=== PATIENT | female | born 1980 | race Caucasian/White ===

== ENCOUNTER → 2019-02-09 | Outpatient (CLI) | payer OTHER, SELFPAY ==
[2019-02-09 14:06] LABS: Color, Urine Straw (Yellow); Glucose, Dipstick Normal (Normal); Ketone-Dipstick Negative (Negative); Leukocyte Esterase-Dipstick Negative /ul (Negative); Nitrite-Dipstick Negative (Negative); Occult Blood-Urine Negative /ul (Negative); Protein-Dipstick Negative (Negative); Urine Bilirubin Dipstick Negative (Negative); Urine Clarity Clear (Clear); Urine Urobilinogen Normal (Normal); Urine pH 6.5 (5.0 - 8.0)
[2019-02-09 15:37] LABS: Chlamydia Trachomatis by PCR Negative (Negative); Neisserai gonorrhoeae by PCR Negative (Negative); Probe Check PASS; Sample Adequacy Control PASS; Specimen Processing Control PASS
[2019-02-09 16:12] LABS: Absolute Lymphocyte Count 1.55 X10^3/ul (0.83-4.51); Absolute Neutrophil Count 5.9 X10^3/uL (2.0-7.7); Basophil# 0.01 X10^3/uL; Basophil% 0.1 % (0-1); Eosinophil# 0.11 X10^3/uL; Eosinophils% 1.4 % (0-5); Hematocrit 33.7 % (37-47); Hemoglobin 10.4 g/dl (12.0-15.0); Lymphocyte # 1.55 X10^3/ul (4.0); Lymphocyte % 19.2 % (19-41); Mean Corp Hgb Conc 30.9 g/gl (32-36); Mean Corpuscular Hgb 25.5 pg (27.0-32.0); Mean Corpuscular Volume 82.6 fL (81-99); Mean Platelet Vol. 10.2 fl (6.2-12.0); Monocyte# 0.45 X10^3/uL; Monocyte% 5.6 % (0-10); Neutrophil # 5.92 X10^3/uL (2.7-7.7); Neutrophil % 73.5 % (47-70); Platelet Count 298 K/mm3 (150-450); RBC Distribution Width SD 47.7 fl (35.1-43.9); Red Blood Count 4.08 M/mm3 (4.2-5.4); White Blood Count 8.1 K/mm3 (4.4-11.0)
[2019-02-09 16:13] LABS: POSITIVE COUNT NO; POSITIVE DIFFERENTIAL NO; POSITIVE MORPHOLOGY NO
[2019-02-09 16:28] LABS: Thyroid Stim Hormone (TSH) 1.09 uIU/mL (0.358-3.74)
[2019-02-09 17:10] LABS: HIV - WCH Non-Reactive (Nonreactive); Rubella IgG 119.2 IU/mL
[2019-02-10 04:56] LABS: Prenatal RPR NONREACTIVE (NONREACTIVE)
[2019-02-11 15:28] LABS: HEPATITIS B SURFACE AG Negative (Negative); Hep C Antibodies <0.1 s/co ratio (0.0-0.9)
[2019-02-13 10:12] LABS: HPV Reflexed? NOT INDICATED
== END | disposition home or self-care (01) ==
PROVIDERS: Visit Provider Obstetrics & Gynecology
DX: Z12.4 Encounter for screening for malignant neoplasm of cervix (principal); Z11.3 Encounter for screening for infections with a predominantly sexual mode of transmission; Z34.81 Encounter for supervision of other normal pregnancy, first trimester
CPT/HCPCS: 36415; 81002; 84443; 85025; 86703; 86762; 86803; 87340; 87491; 87591; 87624; 88175; G0145

== ENCOUNTER 2019-08-16 07:50 | Inpatient (IN) | payer SELFPAY, OTHER ==
[2017-09-26 12:07] VITALS: BMI 24.5
[2019-08-16] VITALS (17 sets, daily range): BP systolic 99–134; BP diastolic 53–85; PULSE 72–97; RESP 16–18; TEMP 36.5–37.3; O2SAT 95–99; BMI 31.8
[2019-08-16] MEDS: Ondansetron 4 MG/2 ML Vial IV (07:56)
[2019-08-16 08:02] LABS: Absolute Lymphocyte Count 1.64 X10^3/uL (0.83-4.51); Absolute Neutrophil Count 7.1 X10^3/uL (2.0-7.7); Basophil# 0.02 X10^3/uL; Basophil% 0.2 % (0-1); Eosinophil# 0.07 X10^3/uL; Eosinophils% 0.8 % (0-5); Hematocrit 38.2 % (37-47); Hemoglobin 12.7 g/dL (12.0-15.0); Lymphocyte # 1.64 X10^3/ul (4.0); Lymphocyte % 17.6 % (19-41); Mean Corp Hgb Conc 33.2 g/dL (32-36); Mean Corpuscular Hgb 30.8 pg (27.0-32.0); Mean Corpuscular Volume 92.5 fL (81-99); Mean Platelet Vol. 10.4 fl (6.2-12.0); Monocyte# 0.44 X10^3/uL; Monocyte% 4.7 % (0-10); NRBC Flagged by Analyzer 0 % (0-5); Neutrophil # 7.11 X10^3/uL (2.7-7.7); Neutrophil % 76.3 % (47-70); Platelet Count 185 K/mm3 (150-450); RBC Distribution Width CV 14.5 % (11.6-14.6); RBC Distribution Width SD 49.1 fl (35.1-43.9); Red Blood Count 4.13 M/mm3 (4.2-5.4); White Blood Count 9.3 K/mm3 (4.4-11.0)
[2019-08-16] MEDS: Lactated Ringers 1,000 ML 150 ML IV (08:45)
[2019-08-16] MEDS: Lactated Ringers 1,000 ML 999 ML IV (10:57)
[2019-08-16] MEDS: Cefazolin 2 GM in 0.9% Normal Saline 100 ML IV (11:35)
[2019-08-16] MEDS: Sodium Citrate/Citric Acid 30 ML UDC PO (11:35)
--- NOTE | 2019-08-16 12:14 | HP.PCM_ITS ---
History and Physical Date of Admission: 08/16/19 ACOG ANTEPARTUM RECORD - HISTORY AND PHYSICAL (08/16/2019) Name: CHIOMA JAIME History of This : This is a 38-year-old patient who presents to labor and delivery in early labor. care has been remarkable for 5 prior C- sections. Patient was scheduled for repeat next Wednesday at 39 weeks gestation. On the monitor the patient was having occasional contractions but they are also noted to be occasionally late appearing decelerations. Given this it was decided to proceed with section today. OB Physician: MINAL [place]'s Physician: NANCY Weiner................................................................... : 1980 Age: 38 Address: [address] [place] [address] Phone: (h) [phone] ([phone] Insurance Carrier: [facility] [phone] Emergency Contact: KRISTIE KEVIN [phone] ...................................................................... Final ANDERSON: 08/27/19 By Ultrasound: 11 weeks 0 days PARITY: (G-Total Pregnancies P-Fullterm,Premature,Induced AB,Spont AB, Ectopics, Multiple,Living) ANDERSON CONFIRMATION: By LMP: 11/21/18 Initial Exam: 08/27/19 By First Ultrasound Exam: 08/27/19 Final ANDERSON: 10/27/19 BLOOD TYPE: AFP: 1 HR P GBS: Group B Beta Streptococcus is not isolated. Original Ordering Provider: Josefina Narayan Rublla titer (>10 immune)--Sep 06 2012: 39 Hepatatis B layla AG-- CULTURES:-- OB PROBLEM LIST: 5 prior C-sections; plan repeat with tubal Brother Dx'd Leukemia age 3 FOB's Sister's baby born w/Heart Defect, 18mo. old Call Sylvain if needs for earlier labor Declines MSAFP, CF testing, consent signed as such Refuses 3 hr GTT. Check BSs and watch carbs Thrid trimester bleeding at 36 weeks; start 2x/week NST Varicella Zoster IgG Neg. Chicken Pox Hx ALLERGIES: NKDA MEDICATIONS: rsgetszwan-wqrmvaxlucanb-iubzaoif 50 mg-325 mg-40 mg tablet 1 to 2 po q 4 hr prn GOMES Calcium 500 500 mg calcium (1,250 mg) tablet One pill by mouth once a day ferrous sulfate 325 mg (65 mg iron) tablet 1 po bid Vitamin i po daily Unisom (doxylamine) 25 mg tablet 1/2 tab prn SOCIAL HISTORY: Smoking - Never Alcohol Use - None Diet - no special diet Lifestyle - moderate stress lifestyle and Exercise - regular Job Description - Homemaker Illicit Drug Use - None Sexual Activity - Spouse-Sig Other Name - Josefina Jaime Spouse-Sig Other Occupation - [employer] Spouse-Sig Other Phone No - [phone] Children Name(s) - Rush Antoine (Dr. Ac), El (FREDY),Mary (FREDY), Dequan '16 PRIOR DELIVERY HISTORY DEL DATE GEST LAB WT LB WT OZ TYPE ANES LABOR TX 16 Sep 06 39 0 7 8 C-Sec Spinal No Apr 10 39 0 7 15 C-Sec Epidural No Nov 05 40 12 8 11 C-Sec Epidural No March 13 39 0 7 7 C-Sec Spinal No ANTEPARTUM FLOW CHART VISIT GE RTC FU F F VA U U DATE WK MD WKS HT PN HR M SS BP ED WT VA GL D EF ST __ ____ ___ __ __ ___ __ __ __ ___ __ __ __ ___ __ 15 Oct 38 JMW 3 38 + + 130/68 sl 193 tr - 10 Oct 37 + + 116/72 0 191 - - 07 Oct 37 KW 1 36 ? + + 116/70 191 - - ft 50 -3 03 Oct 36 JMW 1 36 + + 116/74 0 190 - - 30 Jul 36 JMW 1 36 + + 120/82 sl 192 - - S 17 Jul 34 JMW 2 34 + + 124/68 sl 185 - - cl 50 -2 Jul 01 JMW 3 33 + + 110/70 0 192 - - 06 Jun 28 JMW 3 28 + + 110/70 tr 186 tr - May 23 JMW 5 24 + + 120/70 sl 181 tr - Apr 19 JMW 4 24 + + 116/64 0 172 - - March 15 JMW 4 15 + O 116/66 0 167 - - ANTEPARTUM NOTE(S): Aug 15 2019: see progress noteJENNY Aug 10 2019: Aug 07 2019: Aug 03 2019: BPP 06/10Jul 31 2019: see note, No bleeding now; likely false labor, Ck JENNY Jul 18 2019: Ctxs-Yvon maldonado Jun 27 2019: Yvon Renee Aug 6 2019: CBC,OGCT Today,Good FM,Feeling Well May 02 2019: Doing Well and Glucola Given Apr 04 2019: Doing Well, Comp u/s today Mar 07 2019: Declines AFP and Doing Well COMPREHENSIVE ANTEPARTUM NOTE(S): Aug 15 2019: Chioma presents for her PNV. She reports +FM and has slight swelling in her lower extremities due to her vericose veins. Preop orders/consents signed and placed to return to [facility]. Clorhexadine wash and directions given.No questions or concerns voiced. NST today as well. JT Aug 10 2019: Chioma is here at 37 w 4 d for her NST for 3rd trimester bleeding. She states that she is feeling well, and reports good FM. She states that she had ctx's q 15-20' x 90 minutes last night, but that these stopped and she was able to sleep. States ctx's/cramping she feels today is not as uncomfortable, and more irregular. Denies spotting/leaking fluid. No edema noted. Mild ctx's noted during NST. Acoustic stim x 1 during NST. NST non- reactive, read per Dr. Abarca. BPP ordered, and Chioma is aware of this and states understanding. AW Aug 07 2019: Feeling well; reports active FM; reports irregular cramping/UCs, denies VB, LOF; VE per patient request ft /50 /-3, soft/midliner; discussed more frequent rest periods, increase fluids, FM counts, warning signs, s/s Labor, when to call/come in; repeat c/section scheduled 08/21/19 RTO , 08/10/19 for NST, PNV - KVW Aug 03 2019: Chioma is here at 36 w 4 d for a NST. She states that she feels well. Denies vaginal bleeding since episode on Wednesday. Denies spotting/leaking fluid. Reports FM is about what it has been. No edema noted. Several mild ctx's noted on EEFM. Acoustic stim used x 1. NST does not meet criteria for reactivity, but is reassuring; read per Dr. Narayan. BPP done. Chioma is to return on Wednesday for another NST, and she will watch kick counts. AW Jul 31 2019: Chioma called into triage due to sharp pains and red when wiping around 0400. Pt states she has had nothing since except for cramping. Long dip is negative. Cervix check. AM Jun 27 2019: Chioma is being seen for PNV. Pt states she has been having some cxs that come and go. She also states it feels like the right side of her abdomen is the only side that gets tight through the cxs. AM Feb 09 2019: ok Feb 09 2019: Chioma presents here today for Missed Menses appointment. 38 y.o. G 6 P 5 non-smoker with regular menses and LMP of 11-21-18 lasting her average of 4-5 days. UPT is positive today in our Office. Presents at 11 weeks 2 days with an approximate ANDERSON of 08-27-19 and plans repeat at [facility]. Denies spotting/bleeding thus far in . Reports having nausea daily and tender breasts. History of normal pap screenings from 2008 to 2011 with ASCUS - HPV in 2014. Medication list up-dated and currently taking an OTC Vitamin, when she can. Educational Materials given. ASHELY Feb 09 2019: GC and chlamydia NEG. Hgb only 10.4 g/dl. Iron bid recommended. EB REVIEW OF SYSTEMS: GENERAL - Denies fever, or chills SKIN - Denies rash, new skin lesions, or change in moles EYES - Denies blurred vision, or change in visual acuity EARS - Denies ear pain, or difficulty hearing NOSE - Denies nasal congestion, discharge, or bleeding MOUTH - Denies sore throat, or difficulty swallowing NECK - Denies pain or swelling RESPIRATORY - Denies shortness of breath, cough, wheezing CARDIOVASCULAR - Denies palpitations, chest pain, orthopnea, PND, peripheral edema, syncope or claudication GASTROINTESTINAL - Denies nausea, vomiting, diarrhea, constipation, Denies abdominal pain, melena and or bright red blood GENITOURINARY - Denies dysuria, frequency of urination, urgency, or hesitancy MUSCULOSKELETAL - Denies joint or muscle pain, or back pain NEUROLOGICAL - Denies localized numbness, weakness, or tingling PSYCHIATRIC - Denies depression, anxiety, substance abuse or suicide attempts ENDOCRINE - Denies heat or cold intolerance, weight loss or gain, increasing thirst HEMATO-IMMUNOLOGIC - Denies easy bruising, bleeding, oral ulcerations or recurrent infections GENETICS SCREENING: Age 35+ years: No Thalassemia: No Neural Tube Defect: No Down Syndrome: No AKASH-SACHS: No Sickle Cell Disease: No Hemophilia: No Musc. Dystrophy: No Cystic Fibrosis: No-declines screening [place] Chorea: No Mental Retardation: No Fragile X: No Other genetic: No Other defects: No SABs/still births: No Drugs since LMP: No Comments: Brother Dx'd Leukemia, age 3, now is age 20 INFECTION HISTORY: High risk AIDS: No High risk Hepatitis: No Exposed to TB: No Exposed to Herpes: No Rash/viral illness since LMP: No History of STD: No MENSTRUAL HISTORY: *Menses Amount/Duration: 4-5 DAYSMenses Regularity: RegularFrequency: monthlyMenarche (Age Onset): 14HCG+: 09/06/2012* PAST SUMMARY: PARITY: 1. Total Pregnancies............ 6 2. Full Term Pregnancies........ 5 3. Premature.................... 0 4. Abortions - Induced.......... 0 5. Abortions - Spontaneous...... 0 6. Ectopics..................... 0 7. Multiple Births.............. 0 8. Living Children.............. 5 PAST #1: Date of :.................. 11/29/04 Gestation Weeks:................ 40 Length of labor(hours):......... 12 Sex:............................ M Weight-lbs:............... 8 Weight-oz:................ 11 Type of Delivery:............... C-Sect Type of Anesthesia:............. Epidural Place of Delivery:.............. [facility] of Labor?:.... No Comment: [facility] PAST #2: Date of :.................. 09/16/06 Gestation Weeks:................ 39 Length of labor(hours):......... 0 Sex:............................ M Weight-lbs:............... 7 Weight-oz:................ 8 Type of Delivery:............... C-Sect Type of Anesthesia:............. Spinal Place of Delivery:.............. [facility] of Labor?:.... No Comment: PAST #3: Date of :.................. 04/25/10 Gestation Weeks:................ 39 Length of labor(hours):......... 0 Sex:............................ M Weight-lbs:............... 7 Weight-oz:................ 15 Type of Delivery:............... C-Sect Type of Anesthesia:............. Epidural Place of Delivery:.............. [facility] Labor?:.... No Comment: PAST #4: Date of :.................. 03/29/13 Gestation Weeks:................ 39 Length of labor(hours):......... 0 Sex:............................ F Weight-lbs:............... 7 Weight-oz:................ 7 Type of Delivery:............... C-Sect Type of Anesthesia:............. Spinal Place of Delivery:.............. [facility] Labor?:.... No Comment: NONE PHYSICAL EXAMINATION General Appearence: 38 yo female in no acute distress Vital Signs: AF, VSS Heart: RRR without rubs or gallops Lungs: CTA x 2 Breasts: deferred Abdomen: gravid Pelvis: Cervix: Not examined Presentation: cephalic Station: Not examined Fetus: Size: AGA Movement: present Heart: present Labs for : CHIOMA JAIME since 11/30/2018 ORDER DATEIN DESCRIPTION VALUE UNITS RANGE A+ COMMENT TYPE AND SCREEN 08/16/19 Reason for Type AND Screen/Red Cells: SURGERY Type of Surgery: [facility]~[address] [place], [address]~ BLOOD TYPE GEL A POSITIVE N ANTIBODY SCREEN NEGATIVE N Reviewed by IVON CBC W/DIFF, AUTOMATED 08/16/19 NOTE Original Ordering Provider: Josefina Narayan WBC 9.3 K/mm3 4.4-11.0 RBC 4.13 M/mm3 4.2-5.4 L HGB 12.7 g/dL 12.0-15.0 HCT 38.2 % 37-47 MCV 92.5 fL 81-99 MCH 30.8 pg 27.0-32.0w MCHC 33.2 g/dL 32-36 RDW CV 14.5 % 11.6-14.6 RDW SD 49.1 fl 35.1-43.9 H PLT 185 K/mm3 150-450 MPV 10.4 fl 6.2-12.0 NEUT% 76.3 % 47-70 H LY% 17.6 % 19-41 L MONO% 4.7 % 0-10 EO% 0.8 % 0-5 BASO% 0.2 % 0-1 IM GRAN % 0.400 % 0.0-0.9 IG% - Immature Granulocytes (promyelocytes, myelocytes and metamyelocytes) > 1% indicates that a LEFT SHIFT is Present. ABSOLUTE NEUT 7.1 X10 3/uL 2.0-7.7 ABSOLUTE LYMPH 1.64 X10 3/uL 0.83-4.51 NRBC, FLAGGED 0 % 0-5 Reviewed by IVON GLUCOSE CHALLENGE 50GM 1 HOUR 06/06/19 NOTE Original Ordering Provider: JOSEFINA NARAYAN GLUCOSE CHALLENGE 50GM 1 HOUR GLUCOSE CHALLENGE 50 GMS 1 HOUR GLUCOSE 1HR 146 mg/dl 70 - 140 H Reviewed by JOSEFINA CBC + DIFF 06/06/19 NOTE Original Ordering Provider: LILA SYLVAIN CBC + DIFF CBC-COMPLETE BLOOD COUNT WBC 7.9 x 10EE3/UL 4.5 - 10.8 RBC 3.64 x 10EE6/UL 4.10 - 5.30 L HEMOGLOBIN 10.6 g/dl 12.0 - 16.0 L HEMATOCRIT 31.6 % 34.0 - 46.0 L MCV 87 fl 80 - 99 MCH 29 pg 27 - 33 MCHC 34 X10 3 32 - 36 RDW/CV 13.7 % 12.0 - 15.6 w PLATELET 254 x10EE3/UL 150 - 450 MPV 7.8 fl 6.6 - 10.5 AUTOMATED DIFFERENTIAL NEUT % 77.1 % 46.0 - 76.0 H LYMPH % 15.3 % 20.0 - 45.0 L MONOS % 5.6 % 0.0 - 10.0 EO % 1.2 % 0.0 - 7.0 BASO % 0.8 % 0.0 - 2.0 LYMPH # 1.20 x10EE3/UL 0.80 - 2.80 NEUT # 6.10 x10EE3/UL 1.50 - 7.10 MONO # 0.40 x10EE3/UL 0.20 - 1.00 EO # 0.10 x10EE3/UL 0.00 - 0.50 BASO # 0.10 x10EE3/UL 0.00 - 0.10 MANUAL DIFF N/A MORPHOLOGY N/A Reviewed by JOSEFINA HEPATITIS C ANTIBODIES 02/09/19 NOTE Original Ordering Provider: Josefina Narayan HEP C AB <0.1 s/co ratio 0.0-0.9 Negative: < 0.8 Indeterminate: 0.8 - 0.9 Positive: > 0.9 The CDC recommends that a positive HCV antibody result be followed up with a HCV Nucleic Acid Amplification test (185825). Reviewed by IVON HEPATITIS B SURFACE AG 02/09/19 NOTE Original Ordering Provider: Josefina Narayan HB SURF AG Negative Negative Performed at: [facility] [id number] [place], [place] [id number] Computer Information Systems Professor: Frankie Hickman PhD, Phone: [phone] Reviewed by IVON RPR 02/09/19 NOTE Original Ordering Provider: Josefina Narayan RPR NONREACTIVE NONREACTIVE Reviewed by IVON T AND S-NO CHARGE W/PNP 02/09/19 Reason for Type AND Screen/Red Cells: Surgery? N [facility]~[address] [place], [address]~ BLOOD TYPE GEL A POSITIVE N AB SCREEN GEL NEGATIVE N Reviewed by IVON HIV - [facility] 02/09/19 NOTE Original Ordering Provider: Josefina duran HIV - [facility] Non-Reactive Nonreactive Reviewed by JOSEFINA RUBELLA IGG 02/09/19 NOTE Original Ordering Provider: Josefina Narayan RUBELLA IGG 119.2 IU/mL Antibody results Interpretation of Immune Status < 5 IU/ml Presumed Non-immune 5 - < 10 IU/ml Equivocal > or = 10 IU/ml Presumed Immune Reviewed by JOSEFINA THYROID STIM HORMONE (TSH) 02/09/19 NOTE Original Ordering Provider: Josefina Narayan TSH 1.09 uIU/mL 0.358-3.74 Reviewed by IVON CBC W/DIFF, AUTOMATED 02/09/19 NOTE Original Ordering Provider: Josefina Narayan WBC 8.1 K/mm3 4.4-11.0 RBC 4.08 M/mm3 4.2-5.4 L HGB 10.4 g/dl 12.0-15.0 L HCT 33.7 % 37-47 L MCV 82.6 fL 81-99 MCH 25.5 pg 27.0-32.0 L MCHC 30.9w g/gl 32-36 L RDW CV 16.0 % 11.6-14.6 H RDW SD 47.7 fl 35.1-43.9 H PLT 298 K/mm3 150-450 MPV 10.2 fl 6.2-12.0 NEUT% 73.5 % 47-70 H LY% 19.2 % 19-41 MONO% 5.6 % 0-10 EO% 1.4 % 0-5 BASO% 0.1 % 0-1 w IM GRAN % 0.200 % 0.0-0.9 IG% - Immature Granulocytes (promyelocytes, myelocytes and metamyelocytes) > 1% indicates that a LEFT SHIFT is Present. ABSOLUTE NEUT 5.9 X10 3/uL 2.0-7.7 ABSOLUTE LYMPH 1.55 X10 3/ul 0.83-4.51 Reviewed by IVON URINALYSIS, ROUTINE (DIPSTICK) 02/09/19 NOTE Original Ordering Provider: Josefina Narayan COLOR Straw Yellow CLARITY Clear Clear GLUCOSE, UR Normal mg/dl Normal BILIRUBIN URINE Negative mg/dL Negative KETONE UR Negative mg/dl Negative SP.GR. DIPSTX 1.010 1.002-1.030 PH UR 6.5 5.0 - 8.0 PROT DIPSTX Negative mg/dl Negative UROBILI Normal mg/dl Normal NITRITE UR Negative Negative OCCULT BLOOD-UR Negative /ul Negative LEUK ESTERASE Negative /ul Negative Reviewed by IVON PAP IG W/REFLEX HR HPV APTIMA 02/09/19 NOTE Original Ordering Provider: Josefina Narayan DIAGN . NEGATIVE FOR INTRAEPITHELIAL LESION OR MALIGNANCY. ADEQ . Satisfactory for evaluation. Endocervical and/or squamous metaplastic cells (endocervical component) are present. PERFORM . Rafaela Almaraz Whitewasher (ASCP) TEST METHOD . This liquid based ThinPrep(R) pap test was screened with the use of an image guided system. COMM . . PAPSMR . The Pap smear is a screening test designed to aid in the detection of premalignant and malignant conditions of the uterine cervix. It is not a diagnostic procedure and should not be used as the sole means of detecting cervical cancer. Both false-positive and false-negative reports do occur. HPV RFLX . The HPV DNA reflex criteria were not met with this specimen result therefore, no HPV testing was performed. Performed at: [address] [id number] Computer Information Systems Professor: Mahnaz Ricardo MD, Phone: [phone] Reviewed by Reinier CT/LORENZO [facility] BY PCR 02/09/19 NOTE Original Ordering Provider: Josefina Narayan [facility] PCR Negative Negative NG BY PCR Negative Negative Reviewed by IVON PROVIDER SIGNATURE ( REQUIRED) Impression /Plan: 38+ week intrauterine in early labor with nonreassuring heart tones with prior section x5. Patient also desires permanent sterilization. Plan to proceed today with repeat low transverse cervical section and bilateral tubal occlusion with Filshie clips. Discussed risks, benefits, alternatives at length and will proceed. All questions were answered. Preparations in progress for delivery.
--- NOTE | 2019-08-16 13:18 | OP.PCM_ITS ---
Delivery Classification: Scheduled Final ANDERSON: 08/27/19 Final ANDERSON Source: US <20 weeks Gestational age: 38 Weeks and 3 Days supervisor sewer maintenance: Carmen Ramirez Type of Anesthesia:: Spinal - With Duramorph Implants Used: None Date of Procedure: 08/16/19 Pre-Operative Diagnosis: Prior Section, Nonreassuring Heart Ton es, Early Labor, Desires Permanent Sterilization Post-Operative Diagnosis: Prior Section, Nonreassuring Heart Tones, Early Labor, Desires Permanent Sterilization Indications: Prior section x5 Description of Procedure: Surgeon: Matthieu Dumas MD, FACOG Anesthesia: Jaz Coteat, PRODUCTION LEAD Anesthesia: Spinal with Duramorph Procedure: Repeat Low Transverse Cervical Caesarean Section And Bilateral Tubal Occlusion with Filshie Clips Findings: Viable female with Apgars of 9/9 in caput anterior presentation with clear amniotic fluid and normal three-vessel placenta and cord around the neck x1 tight. Indication: This is a 38-year-old who presents for her sixth at 38+ weeks gestation. care has otherwise been uneventful except she does desire permanent sterilization. The patient has been counseled regarding the risk and indications of this procedure including the possibility of bleeding infection and injury to surrounding structures such as bowel bladder. She also understands the permanent nature of the tubal, the failure rate of 1 to 2%, and the availability of other nonpermanent control options. All questions were answered. Procedure: Patient was taken to the operating room where after spinal anesthesia was placed, the patient was prepped and draped in usual sterile fashion and a Hinkle catheter was placed. The abdomen was entered through the patient's prior Pfannenstiel incision and peritoneum was entered bluntly. After developing a bladder flap on the lower uterine segment a low transverse incision was made on the uterus and head was easily delivered onto the operative field the nose mouth and oropharynx were bulb suctioned. Subsequently a viable female infant was born with Apgars of 9/9. The was noted to cry move all extremities vigorously on the operative field. The umbilical cord was doubly clamped and ligated and infant handed to the nursery personnel who were present for the delivery. Placenta was delivered and noted to be 3 vessels and normal. Uterus was exteriorized and remaining placental tissue was removed. The uterus was then closed in 2 layers first with running locked 0 Vicryl suture followed by a second imbricating layer with 0 Vicryl suture. 0 Vicryl suture was then used in a horizontal mattress interrupted fashion to affect final hemostasis of the uterine incision line. Normal fallopian tubes and ovaries were visualized and Filshie clip's were placed approximately 2 cm from the uterine fundus on each tube. It was necessary to oversew the tube on the left due to some bleeding that ensued after placing the Filshie clip. This was done with 0 Vicryl suture. The uterus was returned to the pelvis. Hemostasis was noted and rectus abdominis muscles were reapproximated in the midline with interrupted Number 0 Vicryl suture in a horizontal mattress fashion. Fascia was closed with running Number 1 PDS Strata fix suture. Subcutaneous tissue was irrigated with copious amounts of saline solution and then closed with running 3-0 Vicryl suture. Skin was closed with 4-0 monocryl suture in a running subcuticular fashion. Steri strips and a Mepilex dressing were placed across the incision. The patient tolerated the procedure well and was taken to the recovery room in satisfactory condition. Sponge, needle, and instrument counts were all reportedly correct. EBL was less than 500 cc. Ancef 2 gms IV was given prior to the procedure. Spicemen to Pathology: None Complications: None Amniotic Membrane Rupture Type: Artificial Amniotic Fluid Description: Clear Placenta Disposition: [facility] Drain: Hinkle to straight drain Fluids Replaced: Crystalloid Cord Entanglement: Around neck x 1, tight Cord Vessel Description: 3 Vessels Esitmated Blood Loss (ml): 500 cc Infant Gender: Female (1 minute): 9 (5 minute): 9 Antibiotic Given: Ancef 2 grams IV x1 Pt instructed on risks of surgery: Bleeding, Infection, Permanency, Failure Rate of 1 to 2%, Injury to surrounding structure(s) including bowel and bladder, Availability of other non-permanent control options Complications: None - Admit VTE Documentation VTE Present on Admission: Yes VTE Mechan Device Prophylaxis: SCD's
--- NOTE | 2019-08-16 13:28 | DCINST_ITS ---
Discharge Diet: No Restrictions Discharge Activity: May not drive while taking narcotic pain medications., May Shower, May Take a Tub Bath May resume sexual activity in: 4-6 weeks Lifting Restrictions: 20 pounds Additional Activity Instructions:: Nothing in the vagina for 4-6 weeks. You may return to work/school in 6 weeks. Call your doctor if your incision/area has: Continuous Slow Oozing, Sudden Increased Bleeding, Increased Pain/ Swelling, Increased Redness, Foul Smelling Discharge Call your doctor if you observe: Fever of 101 or Higher, Inability to urinate, Inability to have a bowel movement, Using more than one pad per hour Additional Instructions: If you experience any of the following, contact your healthcare provider. * Bleeding that soaks a pad every hour for 2 hours * Unrelieved incision or abdominal pain * Swelling, redness, discharge or bleeding from your incision or episiotomy site * Your incision begins to separate * Problems urinating (including inability to urinate or burning while urinating). * Visual changes * Severe headache * Flu-like symptoms * Pain or redness in one of both of your breasts * Pain, warmth, tenderness or swelling in your legs, especially the calf area * Frequent nausea and vomiting * Symptoms of depression or anxiety If you experience any of the following, call 911 or go to the nearest Emergency Room. * Chest pain * Problems breathing * Seizure activity * Partial or complete paralysis of a body part, slurred speech, weakness or drooping of the face, or a sudden inability to walk or hold your balance Allergies/Adverse Reactions: Allergies No Known Allergies Allergy (Verified 08/16/19 04:45) Medications to take at Discharge Docusate Sodium [Colace] 100 mg PO BID PRN PRN #60 cap 08/16/19 Ferrous Sulfate 325 mg PO DAILY 08/16/19 Oxycodone [Oxyir] 5 mg PO Q6H PRN PRN 7 Days #20 tab 08/16/19 Vits [Prenatabs FA] 1 tab PO DAILY 08/16/19 The following prescriptions were given: Docusate Sodium [Colace] 100 mg PO BID PRN PRN #60 cap PRN Reason: Constipation Prescription Printed Oxycodone [Oxyir] 5 mg PO Q6H PRN PRN 7 Days #20 tab PRN Reason: Pain Score [id number] Prescription Printed Follow-Up: Call to make an appointment with your doctor for an incision check in 1-2 weeks. You will also need a 6 week post- follow up appointment. Test results from this visit will be discussed in further detail at your follow-up appointment, if applicable. Please Follow Up With: Matthieu Dumas MD - [phone] When: Call to make an appointment for an incision check in 2 weeks. Primary Care Physician: Timothy Cardozo [Primary Care Provider] -
[2019-08-16] MEDS: Lactated Ringers 1,000 ML 100 ML IV (13:45)
[2019-08-16] MEDS: Oxytocin 30 units/NS 500 ml 30 UNITS/500 ML IV.SOLN 167 UNITS IV (14:15)
--- NOTE | 2019-08-16 15:48 | NURSING ---
precious care and pad changed
[2019-08-16] MEDS: Ketorolac 30 MG/ML Syringe IV (18:01)
[2019-08-16] MEDS: Cefazolin 1 GM/50 ML BAG IV (19:19)
[2019-08-17] VITALS (12 sets, daily range): BP systolic 94–115; BP diastolic 50–67; PULSE 80–95; RESP 14–18; TEMP 36.7–36.9; O2SAT 94–99
[2019-08-17] MEDS: Ketorolac 30 MG/ML Syringe IV ×4 (00:06→17:37)
[2019-08-17] MEDS: 0.9% Saline Lock 10 ML Syringe IV ×3 (00:06→17:37)
[2019-08-17] MEDS: Lactated Ringers 1,000 ML 100 ML IV (00:58)
[2019-08-17] MEDS: Cefazolin 1 GM/50 ML BAG IV (03:24)
[2019-08-17 05:53] LABS: Hematocrit 31.1 % (37-47); Mean Corp Hgb Conc 32.2 g/dL (32-36); Mean Corpuscular Hgb 30.2 pg (27.0-32.0); Mean Platelet Vol. 9.9 fl (6.2-12.0); Platelet Count 154 K/mm3 (150-450); RBC Distribution Width CV 14.6 % (11.6-14.6); RBC Distribution Width SD 50.3 fl (35.1-43.9); Red Blood Count 3.31 M/mm3 (4.2-5.4); White Blood Count 8.7 K/mm3 (4.4-11.0)
[2019-08-17] MEDS: Senna/Docusate Sodium 1 Tablet PO (11:44)
--- NOTE | 2019-08-17 12:05 | PCM.PN.OB ---
Subjective: This is a late entry for 08/17/2019 at 0815 Pain well controlled, tolerating diet well, not passing flatus at this time; has been up to chair x 1; well Objective: AVSS Breasts soft, nipples atraumatic Fundus firm, midline, u/2, lochia scant Mephilex abdominal dressing dry, intact, no drainage noted - Physical Exam General: Alert, Oriented x3, Cooperative HEENT: PERRLA, EOMI Oral: Moist Mucosa Neck: Supple Lungs: Clear to auscultation, Normal air movement Cardiovascular: Regular rate, Regular Rhythm Abdomen: Soft, Non Tender, Non-Distended, Hypoactive Bowel Sounds Extremities: No edema, Capillary Refill Less than 3 Seconds, No Calf Tenderness Musculoskeletal: No Tenderness to Palpation of Joints or Extremities Lymphatic: No Cervical, Supraclavicular, or Inguinal Adenopathy Neurological: Cranial nerves II-XII grossly intact, Deep Tendon Reflexes 2+/4 and Symmetrical Psych/Mental Status: Normal Affect, Appropriate, Alert and oriented to time, place, person, mood and affect Vital Signs Temp Pulse Resp BP Pulse Ox 98.0 F 85 16 101/57 L 96 08/17/19 08:15 08/17/19 10:00 08/17/19 10:00 08/17/19 08:15 08/17/19 10:00 Oxygen Delivery Method Room Air Weight: 191 lb 12.835 oz Body Mass Index (BMI) 31.8 Intake and Output for Last 24 Hours 08/15/19 08/16/19 08/17/19 23:59 23:59 23:59 Intake Total 3306.0 / 3306.0 1825.00 / 1825.00 Output Total 1050 / 1050 4600 / 4600 Balance 2256.0 / 2256.0 -2775.00 / -2775.00 Laboratory Tests Past 24 Hrs 08/17/19 05:40 WBC 8.7 RBC 3.31 L Hgb 10.0 L Hct 31.1 L MCV 94.0 MCH 30.2 MCHC 32.2 RDW Std Deviation 50.3 H RDW Coeff of Grace 14.6 Plt Count 154 MPV 9.9 Medical Necessity - Tobacco Use Smoking Status: Never smoker Assessment/Plan Assessment: 38yo G6 now P6 s/p RCS #6 POD #1 Normal involution Hypoactive BS, not passing flatus at this time Pain well controlled Plan: Encourage walking, fluids, increased fiber Notify provider if no improvement Otherwise continue routine care
[2019-08-17] MEDS: Ibuprofen 600 MG Tablet PO (23:34)
[2019-08-18 02:33] VITALS: BP 129/59; PULSE 82; RESP 18; TEMP 36.6; O2SAT 95
[2019-08-18] MEDS: oxyCODONE 5 MG Tablet PO ×2 (04:52→10:00)
[2019-08-18] MEDS: Ibuprofen 600 MG Tablet PO (08:53)
[2019-08-18] MEDS: Senna/Docusate Sodium 1 Tablet PO (08:53)
--- NOTE | 2019-08-18 09:52 | PCM.PN.OB ---
Subjective: Patient without complaints. Tolerating diet well. Still no flatus. Minimal vaginal bleeding. Wants to go home later today. - Physical Exam Vital Signs Temp Pulse Resp BP Pulse Ox 97.8 F 82 18 129/59 H 95 08/18/19 02:33 08/18/19 02:33 08/18/19 02:33 08/18/19 02:33 08/18/19 02:33 Oxygen Delivery Method Room Air Weight: 191 lb 12.835 oz Body Mass Index (BMI) 31.8 Intake and Output for Last 24 Hours 08/16/19 08/17/19 08/18/19 23:59 23:59 23:59 Intake Total 3306.0 / 3306.0 1825.00 / 1825.00 Output Total 1050 / 1050 4600 / 4600 Balance 2256.0 / 2256.0 -2775.00 / -2775.00 Wound is clean, dry, intact. Good urine output. Medical Necessity - Tobacco Use Smoking Status: Never smoker Assessment/Plan Doing well postoperative day #2 status post repeat and tubal. Will discharge home later today after positive flatus. Home-going instructions given.
[2019-08-18 10:00] VITALS: BP 107/61; PULSE 74; RESP 20; TEMP 36.7; O2SAT 97
[2019-08-18 14:15] VITALS: BP 118/64; PULSE 80; TEMP 36.6; O2SAT 99
== END 2019-08-18 15:40 | disposition home or self-care (01) | DRG 785 ==
LOC: WPOUT 07:59 → WP 07:59
PROVIDERS: Admitting Provider Obstetrics & Gynecology; Family Provider Family Medicine; PCP Family Medicine; Referring Provider Obstetrics & Gynecology; Visit Provider Obstetrics & Gynecology
PROC: 10D00Z1 Extraction of Products of Conception, Low, Open Approach (ICD-10-PCS; CPT 59514; principal; 2019-08-16 12:00)
DX: O76 Abnormality in fetal heart rate and rhythm complicating labor and delivery (principal); O99.02 Anemia complicating childbirth; D64.9 Anemia, unspecified; Z3A.38 38 weeks gestation of pregnancy; Z37.0 Single live birth
CPT/HCPCS: 59025; 59050; 85025; 85027; 86850; 86900; 86901; 94762; 99218; J7120; A4216; G0378; J2405

== ENCOUNTER → 2024-08-15 | Outpatient (CLI) | payer OTHER, SELFPAY ==
--- NOTE | 2024-08-15 12:38 | NM_ITS ---
CLINICAL: 43-year-old female with history of abdominal pain. RADIONUCLIDE HEPATOBILIARY SCINTIGRAPHY COMPARISON: None available FINDINGS: Following the intravenous administration of 5.9 mCi of 99m Tc Mebrofenin, hepatobiliary images reveal: 1. Relatively prompt and homogeneous radiopharmaceutical concentration is noted by a normal sized liver. No parenchymal defects are identified. 2. Gallbladder activity is identified at 10 minutes post radiopharmaceutical administration. 3. Small intestinal tract is observed at 30 minutes following tracer injection. 4. Washout of the radiopharmaceutical by the hepatic parenchyma appears qualitatively normal. Cholecystokinin (0.02 ug/kg) was administered intravenously over a 30-minute period. The post CCK gallbladder ejection fraction calculated at 20 minutes following Cholecystokinin administration was noted to be 86.0 % (normal greater than 35%). During 30 minutes of post CCK imaging, there is no scintigraphic evidence of reflux of the radiotracer into the common hepatic duct or refilling of the gallbladder. NM/Hepatobilliary Img w/Pharm Int IMPRESSION: 1. NORMAL 99m Tc Mebrofenin hepatobiliary imaging examination with Cholecystokinin. A. A gallbladder ejection fraction calculated to be greater than 35% following the administration of Cholecystokinin makes the probability of functional hepatobiliary disease (gallbladder and/or sphincter of Oddi dyskinesia) and/or organic hepatobiliary disease (chronic acalculous cholecystitis and/or cystic duct syndrome) to be low. (Kimo Freeman et al, Journal of Nuclear Medicine 32:1695, 1991). Electronically Signed: Baldemar Monterroso DO at 10:45 EDT ,
== END | disposition home or self-care (01) ==
PROVIDERS: PCP Family Medicine; Referring Provider Surgery; Visit Provider Surgery
DX: R10.11 Right upper quadrant pain (principal)
CPT/HCPCS: 78227; A9537; J2805

== ENCOUNTER 2025-01-12 10:34 | Emergency (ER) | payer OTHER, SELFPAY ==
[2025-01-12 10:34] VITALS: BP 130/65; PULSE 84; RESP 16; TEMP 36.4; O2SAT 100
--- NOTE | 2025-01-12 10:50 | US_ITS ---
PROCEDURE: ABDOMEN LIMITED REASON FOR EXAM: Right upper quadrant pain. COMPARISON: None FINDINGS: Liver: Grossly normal size and echotexture. Gallbladder: The gallbladder is mildly distended. There is a positive sonographic Dumont's sign. A solitary gallstone is seen measuring 7 mm x 6 mm x 3 mm. Small amount of gravel is seen within the dependent portion of the gallbladder lumen. Common bile duct: Dilated measuring up to 10.2 mm . Pancreas: Visualized portions are sonographically unremarkable. Visualized portions of the right kidney are unremarkable. No right upper quadrant ascites. US/Abdomen Limited IMPRESSION: Mildly distended gallbladder with a positive sonographic Dumont's sign. Solita ry gallstone measuring 7 mm x 6 mm x 3 mm. Small amount of gravel is seen along the dependent portion of the gallbladder lumen. The common bile duct is dilated measuring up to 10.2 mm. Reading Location: [place] [address]
--- NOTE | 2025-01-12 11:03 | EX.ED.DYSGE1 ---
HPI History of Present Illness Chief Complaint: Abd Pain Narrative Narrative: Chief complaint and HPI: Right upper quadrant abdominal pain. 44-year-old female with past medical history of biliary colic presents for evaluation of right upper quadrant abdominal pain. Patient states that she was having intermittent episodes of biliary colic in which she was following with Dr. Canales. She states that she was scheduled to have her gallbladder removed however her symptoms resolved and therefore surgery was canceled. Patient states yesterday she had Ukrainian. This morning around 9 AM she developed right upper quadrant abdominal pain that is progressively worsening. She denies any fever, chills, shortness of breath, chest pain, nausea, vomiting, dysuria. She has not ate anything yet today. Denies any daily alcohol use. Review of systems: See HPI Medications: As listed on the chart Allergies: As listed on the chart PFSH: Per chart Vital signs: As listed on the chart. Reviewed. Physical exam: Gen: A&O x3, NAD Head: Normocephalic, atraumatic Eyes: No sclera icterus, conjunctiva clear ENT: Moist mucous membranes Neck: Trachea midline, No JVD CV: RRR, no murmurs, no peripheral edema Resp: Lungs CTA BL, no w/r/c GI: Abd soft, non-distended, tender to palpation in the right upper quadrant, + Dumont sign, no rigidity Musc: Full ROM, no deformity Skin: Warm, dry Neuro: Alert, oriented, grossly intact, sensation intact Psych: Cooperative, appropriate mood and affect [facility] Medical History (Updated 01/12/25 @ 13:[address] Jasbir Mcgrath, DO) Migraine headache Gastric reflux Non-smoker Back pain RUQ pain Gallstones Home Medications ?Medication ?Instructions ?Recorded ?Last Taken ?Type ondansetron 4 mg disintegrating 4 mg PO Q8H PRN PRN Nausea #10 tabs 01/12/25 Unknown Rx tablet oxycodone 5 mg tablet 5 mg PO Q6H PRN pain 3 days #12 01/12/25 Unknown Rx tabs Allergy/AdvReac Type Severity Reaction Status Date / Time No Known Allergies Allergy Verified 01/12/25 10:36 Surgical History History of tonsillectomy and adenoidectomy Hx of tubal ligation S/P section Social History Smoking Status: Never smoker alcohol intake: never EXAM Physical Exam Const Vital Signs: 01/12/25 10:34 01/12/25 12:51 Temperature 97.5 F L 97.9 F Temperature Source Temporal Oral Pulse Rate 84 72 Respiratory Rate 16 16 Blood Pressure 130/65 H 105/66 Blood Pressure Mean 86 79 Pulse Ox 100 100 Oxygen Delivery Method Room Air Room Air MDM MDM MDM Narrative Medical decision making narrative: 44-year-old female with past medical history of biliary colic presents for evaluation of right upper quadrant abdominal pain. Patient has a history of biliary colic in which she is seeing general surgery. On chart review, she had an outpatient HIDA scan with plans to have her gallbladder removed however given that pain resolved, surgery was canceled. Differential diagnosis includes but is not limited to biliary colic, cholelithiasis, cholecystitis, pancreatitis, choledocholithiasis, gastritis. NS bolus, morphine, Zofran ordered for symptoms. Abdominal pain workup ordered including ultrasound of the right upper quadrant. CBC without leukocytosis. Patient has baseline anemia. CMP relatively unremarkable without electrolyte abnormality, transaminitis, hyperbilirubinemia. Lipase unremarkable. Serum negative. CBC with mild leukocytosis of 12.8. Ultrasound shows mildly distended gallbladder with a positive sonographic Dumont sign. Solitary gallstone measuring 7 x 6 x 3 mm. Small amount of gravel is seen along the dependent portion of the gallbladder lumen. The common bile duct is dilated measuring up to 10.2 mm. Given these findings, general surgery was contacted and I spoke with Dr. Canales. Given patient's unremarkable laboratory workup and ultrasound findings no concern for acute cholecystitis. Suspect biliary colic. Recommends patient have her gallbladder removed next week. If pain is not controlled, will admit to the hospital. On reevaluation, patient's pain is controlled. She is comfortable going home and following up outpatient with general surgery with plans for surgery next week. She will call the office when she leaves. She was given Zofran as needed for nausea. Narcotics for pain control. General surgery agreed with the narcotic prescription. Strict return precautions explained. Patient discharged home. Impression: 1. Biliary colic secondary to cholelithiasis 2. Dilated common bile duct 3. Chronic anemia Lab Data Labs: Laboratory Results - last 24 hr 01/12/25 11:28 WBC 8.9 RBC 4.30 Hgb 9.3 L Hct 32.3 L MCV 75.1 L MCH 21.6 L MCHC 28.8 L RDW Std Deviation 45.5 H RDW Coeff of Grace 16.9 H Plt Count 415 MPV 9.3 Immature Gran % (Auto) 0.400 Neut % (Auto) 80.6 H Lymph % (Auto) 13.9 L [place] % (Auto) 3.9 Eos % (Auto) 0.6 Baso % (Auto) 0.6 Absolute Neuts (auto) 7.2 Absolute Lymphs (auto) 1.24 Nucleated RBC % 0 Sodium 140 Potassium 4.3 Chloride 105 Carbon Dioxide 23.5 Anion Gap 12 BUN 14 Creatinine 0.75 Estim Creat Clear Calc 104.09 Est GFR (MDRD) Non-Af 102 BUN/Creatinine Ratio 18.4 Glucose 116 H Calcium 9.8 Total Bilirubin 0.32 Direct Bilirubin 0.21 AST 21 ALT 13 Alkaline Phosphatase 67 Total Protein 8.0 Albumin 4.6 Globulin 3.4 Lipase 20 Serum , Qual NEGATIVE Radiography Diagnostic Testing: Clinical Impression(s) from Imaging Studies Abdomen Ultrasound 01/12/25 10:50 IMPRESSION: Mildly distended gallbladder with a positive sonographic Dumont's sign. Solitary gallstone measuring 7 mm x 6 mm x 3 mm. Small amount of gravel is seen along the dependent portion of the gallbladder lumen. The common bile duct is dilated measuring up to 10.2 mm. Reading Location: [place] [address] Discharge Plan Triage Chief Complaint: Abd Pain ED Provider: Jasbir Mcgrath Dx/Rx/DC Orders Clinical Impression: Biliary colic, Gallstones Instructions: ED Gallstones with Biliary Colic Prescriptions: New oxycodone 5 mg tablet 5 mg PO Q6H PRN (Reason: pain) 3 Days Qty: 12 0RF ondansetron 4 mg tablet,disintegrating 4 mg PO Q8H PRN PRN (Reason: Nausea) Qty: 10 0RF Primary Care Provider: Maryann Cuenca Referrals: Maryann Cuenca MD [Primary Care Provider] - Kevin Canales MD [Med Staff - Active Staff] - 3-5 Days Activity Restrictions/Additional Instructions: Follow-up with general surgery. Call their office when you leave to make an appointment to have surgery to have your gallbladder removed. Return back to the ED if symptoms change or worsen. Print Language: Indonesian Disposition Disposition: Home, Self Care Discharge Date/Time: 01/12/25 13:34
[2025-01-12] MEDS: Ondansetron 4 MG/2 ML Vial IV (11:27)
[2025-01-12] MEDS: Morphine 4 MG/ML Syringe IV (11:28)
[2025-01-12] MEDS: 0.9% Normal Saline (1000mL) 1,000 ML 999 ML IV (11:29)
[2025-01-12 11:31] VITALS: BMI 30.5
[2025-01-12 11:39] LABS: Absolute Lymphocyte Count 1.24 X10^3/uL (0.83-4.51); Absolute Neutrophil Count 7.2 X10^3/uL (2.0-7.7); Basophil# 0.05 X10^3/uL; Basophil% 0.6 % (0-1); Eosinophil# 0.05 X10^3/uL; Eosinophils% 0.6 % (0-5); Hematocrit 32.3 % (37-47); Hemoglobin 9.3 g/dL (12.0-15.0); Lymphocyte # 1.24 X10^3/ul (0.83-4.51); Lymphocyte % 13.9 % (19-41); Mean Corp Hgb Conc 28.8 g/dL (32-36); Mean Corpuscular Hgb 21.6 pg (27.0-32.0); Mean Corpuscular Volume 75.1 fL (81-99); Mean Platelet Vol. 9.3 fl (6.2-12.0); Monocyte# 0.35 X10^3/uL; Monocyte% 3.9 % (0-10); NRBC Flagged by Analyzer 0 % (0-5); Neutrophil # 7.19 X10^3/uL (2.7-7.7); Neutrophil % 80.6 % (47-70); Platelet Count 415 K/mm3 (150-450); RBC Distribution Width CV 16.9 % (11.6-14.6); RBC Distribution Width SD 45.5 fl (35.1-43.9); White Blood Count 8.9 K/mm3 (4.4-11.0)
[2025-01-12 11:54] LABS: Internal QC Validated? YES +Cl - CLEAR BKGD; Pregnancy, Serum, hCG Quali. NEGATIVE Negative
[2025-01-12 11:59] LABS: AST(SGOT) 21 U/L (<=31); Alanine Aminotransfer ALT/SGPT 13 U/L (<=34); Albumin, Serum 4.6 g/dL (3.5-5.0); Alkaline Phosphatase 67 U/L (35-104); Anion Gap 12 (5-15); BUN 14 mg/dL (4-19); BUN/Creat Ratio 18.4 RATIO (10-20); Bilirubin, Direct 0.21 mg/dL (0.00-0.30); Calcium,Total 9.8 mg/dL (7.6-11.0); Carbon Dioxide 23.5 mmol/L (21.0-32.0); Chloride 105 mmol/L (98-108); Creatinine, Serum 0.75 mg/dL (0.70-1.20); EST Glomerular Filtration Rate 102 (>60); Estimated Creatinine Clearance 104.09 ml/min (50-250); Globulin 3.4 g/dL (2.2-4.2); Glucose 116 mg/dL (70-99); Lipase 20 U/L (13-75); Potassium 4.3 mmol/L (3.3-5.1); Sodium Level 140 mmol/L (133-145); Total Bilirubin 0.32 mg/dL (0.00-1.30)
[2025-01-12 12:51] VITALS: BP 105/66; PULSE 72; RESP 16; TEMP 36.6; O2SAT 100
== END 2025-01-12 13:34 | disposition home or self-care (01) ==
PROVIDERS: Emergency Provider Surgery; PCP Family Medicine; Visit Provider Surgery
DX: K80.70 Calculus of gallbladder and bile duct without cholecystitis without obstruction (principal); K83.8 Other specified diseases of biliary tract; D64.9 Anemia, unspecified
CPT/HCPCS: 76705; 80048; 80076; 83690; 84703; 85025; 96361; 96374; 96375; 99283; A4216; J2405

== ENCOUNTER 2025-01-16 05:39 | Day surgery (SDC) | payer SELFPAY, OTHER ==
--- NOTE | 2025-01-15 11:24 | PAT.ANESEVAL ---
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 When Was Last Pacemaker Check QUESTION #4 FULL TEXT: You/Your Family Experience fever (hyperthermia) with Anesthesia Last Oral Intake Last Oral intake: Last Oral Intake NPO since Meds taken in AM with sips of water? Meds patient instructed to take am of surgery PONV PONV - software applications engineer: PONV - software applications engineer Female Yes 01/15/25 10:15 HX of Motion Sickness No 01/15/25 10:15 HX of N/V After Surgery No 01/15/25 10:15 Non-Smoker Yes 01/15/25 10:15 Duration of Surgery greater Yes 01/15/25 10:15 than 60 minutes Number of Risk Factors 3 01/15/25 10:15 PONV Score Moderate Risk 01/15/25 10:15 Height & Weight Height & Weight: Anesthesia: Height & Weight Height 5 ft 5 in 01/12/25 10:34 Respiratory Assessment Respiratory Assessment - software applications engineer: Respiratory Tract Infection Hx - software applications engineer Hx Respiratory Tract Infection No 01/15/25 10:15 STOP Sleep Apnea STOP Sleep Apnea - software applications engineer: STOP Sleep Apnea - software applications engineer Hx Hypertension No 01/15/25 10:15 Hx Sleep Apnea No 01/15/25 10:15 CPAP BIPAP Do you snore loudly (louder No 01/15/25 10:15 than talking or can be heard Do you often feel tired/ No 01/15/25 10:15 fatigued/ sleepy during daytime? Has anyone observed you stop No 01/15/25 10:15 breathing during sleep? STOP Results Negative 01/15/25 10:15 QUESTION #5 FULL TEXT : Do you snore loudly (louder than talking or can be heard through closed doors)? Tobacco Use History Tobacco Use History - software applications engineer: Tobacco Use History - software applications engineer Tobacco Use Smoking Status Never smoker 01/15/25 10:15 Hx Tobacco Use No 01/15/25 10:15 Years Smoking Packs Smoked per Day Smoking Cessation Date was within the last 15 years Hx Smoking Cessation Date Hx Smoking Cessation Counseling Hematologic Medial History Hematologic Hx - software applications engineer: Hematologic Medical Hx - irrigator Hx of Blood Transfusion No 01/15/25 10:15 Hx of Transfusion in last 3 No 01/15/25 10:15 Months Date of Last Transfusion (if within last 3 months) Ever experience any problems No 01/15/25 10:15 with transfusion(s)? Specify any problems Hx of Preganancy in last 3 N/A 01/15/25 10:15 Months Nurse Filling Out Transfusion NBUCHER 01/15/25 10:15 & Questions: Date: 01/15/25 01/15/25 10:15 Time: 10:16 01/15/25 10:15 Patient unable to answer at this time (ie. confused, unrespo /Reproduction History /Reproductive History - software applications engineer: /Reproductive Hx- software applications engineer Hx Now No 01/15/25 10:15 Gestational Age (in weeks): EDC: Hx Hx Para Hx Section SAB No 01/15/25 10:15 [facility] Medical History (Updated 01/15/25 @ 10:19 by Aaliyah Holguin) Wears glasses Anemia Migraine headache Gastric reflux Non-smoker Back pain RUQ pain Gallstones Home Medications ?Medication ?Instructions ?Recorded ?Last Taken ?Type ondansetron 4 mg disintegrating 4 mg PO Q8H PRN PRN Nausea #10 tabs 01/12/25 Unknown Rx tablet oxycodone 5 mg tablet 5 mg PO Q6H PRN pain 3 days #12 01/12/25 Unknown Rx tabs Allergy/AdvReac Type Severity Reaction Status Date / Time No Known Allergies Allergy Verified 01/15/25 10:14 Surgical History History of tonsillectomy and adenoidectomy Hx of tubal ligation S/P section Social History Smoking Status: Never smoker alcohol intake: never Audit: Pertinent Findings Pertinent Findings EKG Perinent findings: 09/26/17 Sinus tachycardia at 102bpm Right atrial enlargement Recommendation Anesthesia Recommendation Anesthesia recommendation: OPTIMIZED for anesthesia
[2025-01-16] VITALS (11 sets, daily range): BP systolic 97–110; BP diastolic 54–84; PULSE 71–77; RESP 16–18; TEMP 36.6–37.7; O2SAT 93–100; BMI 27.0
[2025-01-16] MEDS: 0.9% Normal Saline (1000mL) 1,000 ML 15 ML IV (06:42)
--- NOTE | 2025-01-16 07:12 | HP.PCM_ITS ---
HPI - General General Date of Admission: 01/16/25 Date of Service: 01/16/25 Chief Complaint: Right upper quadrant pain HPI Narrative KIRSTEN SCHNEIDER, is a 44 F who presents for elective laparoscopic cholecystectomy. Patient has been having intermittent right upper quadrant pains for the past several months. I saw her several months ago and recommended cholecystectomy however at that time she was feeling better and elected to not p roceed with surgery. Over the past week she has had some additional attacks and have reached out to the office to schedule surgery. She presents today for cholecystectomy. [facility] Medical History Wears glasses Anemia Migraine headache Gastric reflux Non-smoker Back pain RUQ pain Gallstones Home Medications ?Medication ?Instructions ?Recorded ?Last Taken ?Type ondansetron 4 mg disintegrating 4 mg PO Q8H PRN PRN Na usea #10 tabs 01/12/25 Unknown Rx tablet oxycodone 5 mg tablet 5 mg PO Q6H PRN pain 3 days #12 01/12/25 Unknown Rx tabs Allergy/AdvReac Type Severity Reaction Status Date / Time No Known Allergies Allergy Verified 01/16/25 06:26 Surgical History History of tonsillectomy and adenoidectomy Hx of tubal ligation S/P section Social History Smoking Status: Never smoker alcohol intake: never Vital Signs Vital Signs Vital Signs: 01/16/25 06:25 01/16/25 06:25 Temperature 97.9 F Temperature Source Temporal Pulse Rate 76 Respiratory Rate 16 Respiratory Pattern Normal Blood Pressure 110/84 H Blood Pressure Mean 92 Blood Pressure Source Monitor Blood Pressure Position Semi-Fowlers Blood Pressure Location Left Arm Pulse Ox 100 Oxygen Delivery Method Room Air Weight Weight: 162 lb 4.163 oz Body Mass Index (BMI) 27.0 Physical Exam Const alert, oriented x3 and no apparent distress Assessment & Plan Assessment/Plan (1) Gallstones: (2) Biliary colic: PLAN: The patient is a 44-year-old female with persistent symptomatic Lindsay lithiasis. I have offered her a laparoscopic cholecystectomy as treatment. We discussed the details of the planned procedure and she wishes to proceed. This will begin shortly
--- NOTE | 2025-01-16 07:16 | PRE.ANES_ITS ---
ASA Classification* ASA Classification ASA Classification: 2 Assessment & Plan Anesthesia* Anesthesia Assessment Anesthesia Assessment: Discussed sedation and/or anesthesia options, risks, benefits, and alternatives with patient/parents/legal guardian/POA. Questions invited. The patient/parents/legal guardian/POA seems to understand and agrees to proceed with anesthesia plan. Reviewed the physical assessment, medical history, allergy history and patient home medications list prior to surgery/procedure/anesthetic and documented any changes. Performed airway and anesthesia risk assessments. Anesthesia Type Anesthesia Type: General History Source History Obtained from:: Patient and Chart Anesthesia Focused Assessment* Temperature: 97.9 F Pulse Rate: 76 Blood Pressure: 110/84 Respiratory Rate: 16 Pulse Ox: 100 Oxygen Delivery Method: Room Air Airway Assessment Mouth opens: >3 cm Mallampati Score: III Teeth Condition: Intact Neck Range of motion (ROM): Full ROM Focused Labs Anesthesia Preop lab: CBC WBC 8.9 K/mm3 (4.4-11.0) 01/12/25 11:01/12/25 RBC 4.30 M/mm3 (4.2-5.4) 01/12/25 11:01/12/25 Hgb 9.3 g/dL (12.0-15.0) L 01/12/25 11:01/12/25 Hct 32.3 % (37-47) L 01/12/25 11:01/12/25 Plt Count 415 K/mm3 (150-450) 01/12/25 11:28 01/12/25 CHEMISTRY Potassium 4.3 mmol/L (3.3-5.1) 01/12/25 11:01/12/25 Sodium 140 mmol/L (133-145) 01/12/25 11:01/12/25 BUN 14 mg/dL (4-19) 01/12/25 11:01/12/25 Creatinine 0.75 mg/dL (0.70-1.20) 01/12/25 11:01/12/25 Glucose 116 mg/dL (70-99) H 01/12/25 11:01/12/25 TSH 1.09 uIU/mL (0.358-3.74) 02/09/19 13:16 COAG PT 13.5 SECONDS (11.9-14.4) 03/29/13 10:00 3 Pre-Assessment Diagnosis/Proposed Procedure Planned Operative Procedure(s): Laparoscopic, Cholecystectomy with IOC Anesthesia History Anesthesia History - seafood harvester: Anesthesia History - seafood harvester Hx Hospitalization No 01/15/25 10:15 Any Problems With Anesthesia No 01/15/25 10:15 Cholinesterase deficiency No 01/15/25 10:15 You/Your Family Experience No 01/15/25 10:15 fever (hyperthermia) with Relationship Recent Exposure to Contagious No 01/16/25 06:25 Disease Does patient have nerve No 01/15/25 10:15 stimulator Patient instructed to have device shut off --Does patient have Pacemaker No 01/16/25 06:25 or ICD? When Was Last Pacemaker Check QUESTION #4 FULL TEXT: You/Your Family Experience fever (hyperthermia) with Anesthesia Last Oral Intake Last Oral intake: Last Oral Intake NPO since 23:00 01/16/25 06:25 Meds taken in AM with sips of No 01/16/25 06:25 water? Meds patient instructed to take am of surgery PONV PONV - seafood harvester: PONV - seafood harvester Female Yes 01/15/25 10:15 HX of Motion Sickness No 01/15/25 10:15 HX of N/V After Surgery No 01/15/25 10:15 Non-Smoker Yes 01/15/25 10:15 Duration of Surgery greater Yes 01/15/25 10:15 than 60 minutes Number of Risk Factors 3 01/15/25 10:15 PONV Score Moderate Risk 01/15/25 10:15 Height & Weight Height & Weight: Anesthesia: Height & Weight Height 5 ft 5 in 01/16/25 06:25 Weight: 73.6 kg 01/16/25 06:25 Body Mass Index (BMI) 27.0 01/16/25 06:25 Respiratory Assessment Respiratory Assessment - seafood harvester: Respiratory Tract Infection Hx - seafood harvester Hx Respiratory Tract Infection No 01/15/25 10:15 STOP Sleep Apnea STOP Sleep Apnea - seafood harvester: STOP Sleep Apnea - seafood harvester Hx Hypertension No 01/15/25 10:15 Hx Sleep Apnea No 01/15/25 10:15 CPAP BIPAP Do you snore loudly (louder No 01/15/25 10:15 than talking or can be heard Do you often feel tired/ No 01/15/25 10:15 fatigued/ sleepy during daytime? Has anyone observed you stop No 01/15/25 10:15 breathing during sleep? STOP Results Negative 01/15/25 10:15 QUESTION #5 FULL TEXT : Do you snore loudly (louder than talking or can be heard through closed doors)? Tobacco Use History Tobacco Use History - seafood harvester: Tobacco Use History - seafood harvester Tobacco Use Smoking Status Never smoker 01/15/25 10:15 Hx Tobacco Use No 01/15/25 10:15 Years Smoking Packs Smoked per Day Smoking Cessation Date was within the last 15 years Hx Smoking Cessation Date Hx Smoking Cessation Counseling Hematologic Medial History Hematologic Hx - seafood harvester: Hematologic Medical Hx - director motion picture Hx of Blood Transfusion No 01/15/25 10:15 Hx of Transfusion in last 3 No 01/15/25 10:15 Months Date of Last Transfusion (if within last 3 months) Ever experience any problems No 01/15/25 10:15 with transfusion(s)? Specify any problems Hx of Preganancy in last 3 N/A 01/15/25 10:15 Months Nurse Filling Out Transfusion NBUCHER 01/15/25 10:15 & Questions: Date: 01/15/25 01/15/25 10:15 Time: 10:16 01/15/25 10:15 Patient unable to answer at this time (ie. confused, unrespo /Reproduction History /Reproductive History - seafood harvester: /Reproductive Hx- seafood harvester Hx Now No 01/15/25 10:15 Gestational Age (in weeks): EDC: Hx Hx Para Hx Section SAB No 01/15/25 10:15 Active Medications Active Medications: Current Medications Generic Name Dose Route Start Last Admin Trade Name Freq PRN Reason Stop Dose Admin Sodium Chloride 1,000 mls @ 15 mls/hr 01/16/25 06:00 01/16/25 06:42 IV 01/21/25 19:19 15 mls/hr .Q48H LEROY Administration PFSH Medical History Wears glasses Anemia Migraine headache Gastric reflux Non-smoker Back pain RUQ pain Gallstones Home Medications ?Medication ?Instructions ?Recorded ?Last Taken ?Type ondansetron 4 mg disintegrating 4 mg PO Q8H PRN PRN Na usea #10 tabs 01/12/25 Unknown Rx tablet oxycodone 5 mg tablet 5 mg PO Q6H PRN pain 3 days #12 01/12/25 Unknown Rx tabs Allergy/AdvReac Type Severity Reaction Status Date / Time No Known Allergies Allergy Verified 01/16/25 06:26 Surgical History History of tonsillectomy and adenoidectomy Hx of tubal ligation S/P section Social History Smoking Status: Never smoker alcohol intake: never Review of Systems (Anesthesia) ROS Narrative System reviewed and no additional complaints, except as documented. Physical Exam Const alert, oriented x3 and average body habitus Resp normal respiratory effort, normal air movement and clear to auscultation bilaterally Cardio regular rate, regular rhythm, no murmurs and diaphoretic
--- NOTE | 2025-01-16 07:30 | GALL_PTH ---
PATIENT: KIRSTEN SCHNEIDER LOC: [facility] [place] U#:[id number] AGE/SX: 44/F ROOM: RE01/16/[address]: Dr. Kevin Canales MD : 1980 BED: DIS: 01/16/2025 SPEC #: [id number] RECD: 01/16/25 10:42 STATUS: LIDIA REBlossom #: [id number] CHAD: 01/16/25 07:[address]: Kevin Canales DEPT: SURGICAL PATHOLOGY RECD BY: Mary Hopper ENTERED: 01/16/25 12:22 SP TYPE: DEMETRA NYE DR: Dr. Maryann Cuenca MD Tissues: Gallbladder, NOS Procedures: Surgery Specimen Level III HEADER OPERATION: Laparoscopic, cholecystectomy with IOC PRE-OP DIAGNOSIS: Gallstones, biliary colic TISSUE SUBMITTED: A- Gallbladder MICROSCOPIC DIAGNOSIS A. Gallbladder, cholecystectomy: * Cholelithiasis, cholesterolosis. MICROSCOPIC DESCRIPTION Slides are reviewed. GROSS DESCRIPTION A. Received in fixative is one container labeled with the patient's name and designated Gallbladder. The specimen consists of one gallbladder measuring 8 x 4.2 x 2.3cm. The external surface is green. The hepatic bed is covered in black ink. The gallbladder is filled with green viscous bile and is opened along the serosal surface. There are a few small green gallstones in the gallbladder. There are no growths or ulcerations. 01/16/2025 CPT:03947
--- NOTE | 2025-01-16 08:00 | RAD_ITS ---
PROCEDURE: CHOLANGIOGRAM/ O R,INITIAL; O.R. FLUORO FOR C-ARM REASON FOR EXAM: LAP SAURABH W/ IOC TECHNIQUE: Fluoroscopy was performed for intraoperative cholangiogram, following cholecystectomy. Multiple fluoroscopic images were obtained. COMPARISON: None. RAD/Cholangiogram/ O R,Initial IMPRESSION: Fluoroscopy was performed for intraoperative cholangiogram, following cholecyst ectomy. Multiple fluoroscopic images were obtained. Reading Location: [id number]
--- NOTE | 2025-01-16 08:00 | RAD_ITS ---
PROCEDURE: CHOLANGIOGRAM/ O R,INITIAL; O.R. FLUORO FOR C-ARM REASON FOR EXAM: LAP SAURABH W/ IOC TECHNIQUE: Fluoroscopy was performed for intraoperative cholangiogram, following cholecystectomy. Multiple fluoroscopic images were obtained. COMPARISON: None. RAD/O.R. Fluoro for C-Arm IMPRESSION: Fluoroscopy was performed for intraoperative cholangiogram, following cholecyst ectomy. Multiple fluoroscopic images were obtained. Reading Location: [id number]
[2025-01-16] MEDS: Bupiv/Epi 0.25% 30 ML Vial (08:21)
--- NOTE | 2025-01-16 08:23 | EX.PCM.DISCH ---
Discharge Instructions Diet Discharge Diet: Light diet - advance as tolerated Activity Discharge Activity: Return to Normal Activity and May Shower May shower in (days): 1 Ice area for (Minutes): 30 Lifting Restrictions: NO LIFTING OIVER 20 POUNDS FOR 4 WEEKS Dressing / Incision Call your doctor if your incision/area has: Continuous Slow Oozing, Sudden Increased Bleeding, Increased Pain/ Swelling, Increased Redness, Foul Smelling Discharge and Swelling at the incision site Call your doctor if you observe: Fever of 101 or Higher Cleanse incision/area with: Soap & Water Follow Up Care Please Follow Up With: Kevin Canales MD When: 2 weeks. Call office to make appointment Test Results: Test results from this visit will be discussed in further detail at your follow-up appointment, if applicable. Discharge Plan Admission Primary Reason for Your Visit: symptomatic cholelithiasis Attending Provider: Kevin Canales Primary Care Provider: Maryann Cuenca Instructions Print Language: [place] Discharge Orders/Prescriptions Prescriptions: New oxycodone-acetaminophen [Percocet] 5-325 mg tablet 1 tab PO Q8H PRN (Reason: pain) 4 Days Qty: 10 0RF Continued oxycodone 5 mg tablet 5 mg PO Q6H PRN (Reason: pain) 3 Days Qty: 12 0RF ondansetron 4 mg tablet,disintegrating 4 mg PO Q8H PRN PRN (Reason: Nausea) Qty: 10 0RF Referrals / Follow Up: Maryann Cuenca MD [Primary Care Provider] - Disposition Disposition (needs filled in before D/C Order can be placed): Home, Self Care
--- NOTE | 2025-01-16 08:29 | PCM.OPRPT ---
Problems Associated Problem List Diagnoses (1) Biliary colic: Procedures Digestive 40xxx-49xxx: 30449 Laparo cholecystectomy/graph Operative Report (Standard) Operative Information Date of Procedure: 01/16/25 Pre-Operative Diagnosis: Symptomatic cholelithiasis Post-Operative Diagnosis: Symptomatic cholelithiasis Surgery/Procedure Performed: Laparoscopic cholecystectomy with intraoperative cholangiograms enterprise project manager: Yes Older Adult Social Work Specialist: Grady Alatorre Tasks completed by certified first assistant: Closing, Trocar and Retracting Additional certified dental assistant?: No Type of Anesthesia: General and Local RN Documented Start/Stop Times: Operation Date: 01/16/25 07:30 Case Time Into Pre-Op 01/16/25 05:58 Out of Pre-Op 01/16/25 07:23 Anesthesia Start 01/16/25 07:26 Into Room 01/16/25 07:26 Procedure Start 01/16/25 07:48 Procedure End 01/16/25 08:28 Procedure Start Time: 07:48 Procedure Stop Time: 08:28 Select all DRAINS/GRAFTS/IMPLANTS that apply: None Estimated Blood Loss: 5 mL Specimen collected: Yes Description of specimen(s) removed: Gallbladder Description of surgery: The patient is a 44-year-old female who was recently seen to the office with symptomatic cholelithiasis. She has had numerous gallbladder attacks in the past few months. I saw her several months ago and offered her surgery however she then felt better and wished to cancel surgery. In the past couple of weeks she has had some increasing attacks in 1 particular gallbladder attack caused her to present to the emergency department. She was discharged to home and she contacted our office to schedule cholecystectomy. She presents today for elective laparoscopic cholecystectomy with cholangiograms. She was brought to the operating room today following informed consent. She was placed supine on the operative table with arms outstretched on arm boards. The details of the procedure including risk benefits and alternatives were discussed. The abdomen was then prepped and draped in the usual sterile manner after general anesthesia was induced. A 5 mm incision was made just below the umbilicus which a 5 mm trocar was placed optically. This was placed without incident. Once in place the abdomen is then fully insufflated with CO2 gas. A 5 mm 0 degree scope was inserted. There were no signs of bowel or vascular injury next two 5 mm trocars were placed in the right upper quadrant under direct visualization and without difficulty. A 12 mm trocar was then placed in the epigastric area also under direct visualization and without incident. The patient was then positioned with some head up and rolled to the left to improve visualization of the gallbladder. The gallbladder was identified and was reflected in a cephalad direction. The gallbladder did not appear to be particularly thickened. There was some adherent omentum to the undersurface of the gallbladder but this peeled down nicely. The infundibulum the gallbladder was identified. The peritoneum overlying this area was cleared away. The cystic duct and cystic artery were both dissected out circumferentially. The peritoneum on either side of the gallbladder was incised using hook electrocautery and the lower third of the gallbladder was removed off the undersurface of the liver in order to then established a critical view of safety. There were 2 and only 2 structures going to and from the gallbladder. There is being the cystic duct and cystic artery. The cystic duct was addressed first by placing a 10 mm clip on the gallbladder side of the cystic duct. A small ductotomy was then made using curved scissors. Cholangiogram catheter was then inserted and cholangiograms were then performed using contrast dye. This showed good opacification of the biliary tree without any obvious filling defects. The cholangiogram catheter was then removed. 10 mm clips x 3 were then placed on the cystic duct stump. The cystic duct was then transected using scissors. The cystic artery was then clipped and transected in a similar manner. Next the gallbladder was then removed from the liver bed by the use of hook electrocautery. This was removed without incident. The gallbladder was then placed into a bag and brought out through the 10 mm trocar site. The trocar was replaced. The right upper quadrant is then copiously irrigated with saline. This suctioned clean and dry. Asked the liver bed was examined. All clips remain in place. Hemostasis was excellent. The fascia at the 10 mm trocar site was closed using 0 PDS with the aid of the fascial closure device. The remaining trocars were opened up and insufflation was allowed to escape. These trocars were then removed. Local anesthetic was injected into the incisions. A total of 20 cc of local anesthetic was utilized. The incisions were then closed using 4-0 Vicryl. Skin glue was applied as dressing. She was awakened from anesthesia and taken to recovery in good condition. A SMOCKER was utilized as a airline pilot/first officer. Her role included gallbladder retraction, patient positioning, and assistance with skin closure Surgical Findings: Normal cholangiogram Complications Complications: No Admit VTE Documentation VTE Present on Admission: No VTE Mechan Device Prophylaxis: SCD's VTE Pharm Prophylaxis ordered?: No Reason prophylaxis not ordered: Treatment Not Indicated
--- NOTE | 2025-01-16 08:41 | PCM.POST.ANE ---
Anesthesia: Postop Eval I Current Vital Signs Temperature: 97.8 F Pulse Rate: 75 Blood Pressure: 102/55 Respiratory Rate: 16 Pulse Ox: 100 Oxygen Delivery Method: Room Air Assessment Airway patent: Yes Spontaneous unlabored respirations: Yes Mental status: Awake and Calm nausea: No Vomiting: No Anesthesia Complication: No Fluid Hydration Crystalloid volume administer (ml): 700 Total IV fluid infused: 700 Progress Note Anesthesia document: Postop Eval 1 completed: Yes
--- NOTE | 2025-01-16 09:27 | POSTOPAN2_ITS ---
Anesthesia Postop Eval I Sum Postop Eval Completion status Anesthesia document: Postop Eval 1 completed: Yes Anesthesia Postop Eval I Summary Anesthesia Postop Eval I Summary: Anesthesia Postop Eval I: Assessment Summary Airway patent Yes 01/16/25 08:42 APPLICATION ASSISTANT.GDOTT Spontaneous unlabored Yes 01/16/25 08:42 APPLICATION ASSISTANT.GDOTT respirations Mental status Awake,Calm 01/16/25 08:42 APPLICATION ASSISTANT.GDOTT nausea No 01/16/25 08:42 APPLICATION ASSISTANT.GDOTT Vomiting No 01/16/25 08:42 APPLICATION ASSISTANT.GDOTT Anesthesia Postop Eval I: Fluid Summary Crystalloid volume administer 700 01/16/25 08:42 APPLICATION ASSISTANT.GDOTT (ml) Colloids volume administered ( ml) Blood Product volume administered (ml) Total IV fluid infused 700 01/16/25 08:42 APPLICATION ASSISTANT.GDOTT Anesthesia Postop Eval I: Summary Notes Anesthesia Complication No 01/16/25 08:42 APPLICATION ASSISTANT.GDOTT Anesthesia Complication Comment: Post-operative progress note Anesthesia: Postop Eval II Evaluation Mental status: Awake Pain Level: 0 nausea: No Vomiting: No Complications Anesthesia Complication: No
--- NOTE | 2025-01-16 09:27 | PCM.POSTANE2 ---
Anesthesia Postop Eval I Sum Postop Eval Completion status Anesthesia document: Postop Eval 1 completed: Yes Anesthesia Postop Eval I Summary Anesthesia Postop Eval I Summary: Anesthesia Postop Eval I: Assessment Summary Airway patent Yes 01/16/25 08:42 EDGE SETTER.GDOTT Spontaneous unlabored Yes 01/16/25 08:42 EDGE SETTER.GDOTT respirations Mental status Awake,Calm 01/16/25 08:42 EDGE SETTER.GDOTT nausea No 01/16/25 08:42 EDGE SETTER.GDOTT Vomiting No 01/16/25 08:42 EDGE SETTER.GDOTT Anesthesia Postop Eval I: Fluid Summary Crystalloid volume administer 700 01/16/25 08:42 EDGE SETTER.GDOTT (ml) Colloids volume administered ( ml) Blood Product volume administered (ml) Total IV fluid infused 700 01/16/25 08:42 EDGE SETTER.GDOTT Anesthesia Postop Eval I: Summary Notes Anesthesia Complication No 01/16/25 08:42 EDGE SETTER.GDOTT Anesthesia Complication Comment: Post-operative progress note Anesthesia: Postop Eval II Evaluation Mental status: Awake Pain Level: 0 nausea: No Vomiting: No Complications Anesthesia Complication: No
[2025-01-16] MEDS: HYDROcodone Bitartrate/Apap 5/325 Tablet PO (09:45)
== END 2025-01-16 11:22 | disposition home or self-care (01) ==
LOC: SDC 05:40 → AC 05:41
PROVIDERS: PCP Family Medicine; Referring Provider Surgery; Visit Provider Surgery
PROC: (CPT 47610; principal; 2025-01-16 07:10)
DX: K80.70 Calculus of gallbladder and bile duct without cholecystitis without obstruction (principal); K21.9 Gastro-esophageal reflux disease without esophagitis
CPT/HCPCS: 47563; 00790; 74300; 76000; 88304; 93005; C1769; J2405